=== PATIENT | male | born 1960 | race Caucasian/White ===

== ENCOUNTER 2017-03-20 07:50 | Emergency (ER) | payer OTHER ==
[~2017-03-20] VITALS: Ht 167.6 cm; Wt 75.0 kg
[2017-03-20] MEDS ORDERED: SODIUM CHLORIDE FLUSH 10ML SYR IVF ONE (08:30)
[2017-03-20] MEDS ORDERED: SODIUM CHLORIDE 0.9% 1,000ML IVBOLUS ONE (08:30)
[2017-03-20 08:38] LABS: DAU SCREEN DISCLAIMER
[2017-03-20 08:43] LABS: HEMATOCRIT 48.7 % (39.2-51.8); HEMOGLOBIN 15.9 g/dL (13.7-18.0); WHITE BLOOD COUNT 8.1 x10^3/uL (3.4-10)
[2017-03-20 08:46] LABS: PATH.CAST-FLAG NOT PRESENT; SPERM-FLAG NOT PRESENT; SRC-FLAG NOT PRESENT; XTAL-FLAG NOT PRESENT; YLC-FLAG NOT PRESENT
[2017-03-20 08:53] LABS: ASPARTATE AMINO TRANSFERASE 52 U/L (15-37); BLOOD UREA NITROGEN 16 mg/dL (7-18)
[2017-03-20 09:50] VITALS: BP 124/93
== END 2017-03-20 10:12 | disposition home or self-care (01) ==
LOC: ED 08:58
DX: R41.82 Altered mental status, unspecified (principal); G93.40 Encephalopathy, unspecified; E11.9 Type 2 diabetes mellitus without complications; R41.0 Disorientation, unspecified
CPT/HCPCS: 36415; 70450; 80053; 80307; 81001; 82140; 85025; 93005; 96360; 99285; J7030

== ENCOUNTER 2018-11-15 14:13 | Emergency (ER) | payer OTHER ==
[~2018-11-15] VITALS: Ht 165.1 cm; Wt 63.5 kg
[2018-11-15 14:19] VITALS: BP 140/86
[2018-11-15] MEDS ORDERED: BICILLIN-LA 2,400,000 UNITS/4 ML IM ONE (14:30)
--- NOTE | 2018-11-15 14:34 | NUR ---
PT HAS +RPR TEST AT .
--- NOTE | 2018-11-15 14:47 | NUR ---
PT MEDICATED PER EMAR.
--- NOTE | 2018-11-15 15:11 | NUR ---
Patient/Caregiver given discharge instructions and they have confirmed that they understand the instructions. Patient ambulatory with steady gait.
== END 2018-11-15 15:13 | disposition home or self-care (01) ==
LOC: ED 15:07
DX: A53.9 Syphilis, unspecified (principal); Z21 Asymptomatic human immunodeficiency virus [HIV] infection status
CPT/HCPCS: 96372; 99283; J0561